=== PATIENT | female | born 1995 | race Caucasian/White ===

== ENCOUNTER 2023-09-20 00:56 | Emergency (ER) | payer OTHER, SELFPAY ==
[2023-09-20 01:04] VITALS: BP 128/79; PULSE 90; RESP 16; TEMP 37.1; O2SAT 100; BMI 24.0
[2023-09-20 01:19] LABS: MANUAL DIFF FLAG NO
[2023-09-20 01:21] LABS: Basophils Percent Auto 0.2 % (0-2); Hematocrit 38.3 % (37.0-47.0); Hemoglobin 13.4 g/dl (12.0-16.0); Imm Gran Abs Auto 0.01 X10*3/uL (0.00-0.03); Imm Gran Pct Auto 0.1 % (0.0-0.4); Lymphocytes Absolute Auto 1.5 X10*3/uL (1.2-4.9); Lymphocytes Percent Auto 18.3 % (20-40); Mean Corpuscular Hemoglobin 28.8 pg (27.0-33.0); Mean Corpuscular Volume 82.2 fL (80.0-98.0); Mean Platelet Volume 10.8 fL (9.4-12.3); Monocytes Absolute Auto 0.8 X10*3/uL (0.1-1.2); Monocytes Percent Auto 9.9 % (2-11); Neutrophils Absolute Auto 5.9 x10*3/uL (2.0-8.3); Neutrophils Percent Auto 71.5 % (45-73); Platelet Count 179 X10*3/uL (160-400); Red Blood Count 4.66 X10*6/uL (4.20-5.50); Red Cell Distribution Width 13.2 % (11.0-16.0); White Blood Count 8.3 X10*3/uL (4.8-10.8)
[2023-09-20 01:47] LABS: Alanine Aminotransferase 20 U/L (0-31); Albumin Level 4.5 g/dL (3.5-5.0); Alkaline Phosphatase 88 U/L (39-117); Anion Gap 23 (12-20); Aspartate Amino Transferase 30 U/L (5-31); Bilirubin Total 0.4 mg/dL (0.0-1.0); Blood Urea Nitrogen 7 mg/dL (9-16); Calcium 9.8 mg/dL (8.4-10.2); Carbon Dioxide 18 mmol/L (22-29); Chloride 99 mmol/L (96-108); Creatinine Clr Calc Pharmacy 90.3; Estimated Glomerular Filt Rate > 60; Glucose Random 102 mg/dL (60-115); HCG Quantitative < 2 mIU/mL; Potassium 4.8 mmol/L (3.3-5.1); Sodium 135 mmol/L (135-145); Total Protein 9.2 g/dL (6.5-8.0)
[2023-09-20 01:57] LABS: Influenza A PCR NEGATIVE (Negative); Influenza B PCR NEGATIVE (Negative); Resp Syncy Virus RNA Qual PCR NEGATIVE (Negative); SARS COV2 PCR INHOUSE NEGATIVE (Negative)
[2023-09-20 02:00] VITALS: BP 117/75; PULSE 74; RESP 20; TEMP 37; O2SAT 98
--- NOTE | 2023-09-20 02:16 | ED_ITS ---
HPI - Nausea/Vomiting/Diarrhea General Chief complaint: Nausea/Vomiting/Diarrhea Stated complaint: body aches , nausea Time Seen by Provider: 09/20/23 02:12 Source: patient Mode of arrival: ambulatory Limitations: no limitations History of Present Illness HPI Narrative: Comes to the emergency room complaining of nausea vomiting and diarrhea for 3 days. Diffuse body aches. No fever chills. Patient denies chest pain or shortness of breath, no significant abdominal pain, mild discomfort diffusely in the abdomen. Related Data Previous Rx's ?Medication ?Instructions ?Recorded ondansetron 4 mg disintegrating 4 mg PO Q6H PRN nausea and 09/20/23 tablet vomiting #14 tabs Allergies Allergy/AdvReac Type Severity Reaction Status Date / Time shellfish derived Allergy Anaphylaxis Verified 09/20/23 01:06 Review of Systems 2 Review of Systems: Constitutional : No Weight loss, No Fever, No Chills, No Night Sweats, No Fatigue, No Malaise ENT/Mouth : No Hearing loss, No Ear Pain, No Nasal Congestion, No Sinus Pain, No Hoarseness, No sore throat, No Rhinorrhea, No Swallowing Difficulty Eyes: No Eye Pain, No Swelling, No Redness, No Foreign Body, No Discharge, No Vision Changes Cardiovascular : No Chest Pain, No SOB, No Dyspnea on Exertion, No Orthopnea, No Edema, No Palpitations Respiratory : No Cough, No Sputum, No Wheezing, No Smoke Exposure, No Dyspnea Gastrointestinal : Complaining of nausea vomiting and diarrhea, complaining of abdominal discomfort, crampy sensation Genitourinary : no irregular bleeding, No Dysuria, No Urinary Frequency, No Hematuria, No Urinary Incontinence, No Urgency, No Flank Pain, No Urinary Flow Changes, No Hesitancy Musculoskeletal : No joint pain, No Myalgias, No Joint Swelling Skin : No Skin Lesions, No rash Neuro : No Weakness, No Numbness, No Paresthesias, No Loss of Consciousness, No Dizziness, No Headache Psych : No Anxiety/Panic, No Depression, No SI/HI/AH/VH, No Social Issues, Heme/Lymph: No Bruising, No Bleeding,No Lymphadenopathy Endocrine : No Polyuria, No Polydipsia, No Temperature Intolerance PMFSH Social History Social History Smoked in Last 30 Days: No Use of substances other than those prescribed or required for medical reasons: No Advance Directives: No Advance Directives Information Provided: No Do you have a plan to hurt others: No Plan Patient : No Physical Exam 2 Vital Signs: Vital Signs: Last Vital Signs Temp 98.4 F 09/20/23 04:00 Pulse 81 09/20/23 04:00 Resp 16 09/20/23 04:00 BP 127/77 09/20/23 04:00 Pulse Ox 98 09/20/23 04:00 O2 Del Method Room Air 09/20/23 04:00 BMI result Body Mass Index 24.0 Const: Other: Appearance: Alert. Oriented X3. No acute distress. Eyes: Pupils equal, round and reactive to light. ENT: Pharynx normal. Dry oral mucosa Neck: Normal inspection. Neck supple. No lymph nodes noted. No crepitus CVS: Normal heart rate and rhythm. Pulses normal. Normal S1 and S2 Respiratory: No respiratory distress. Breath sounds normal. No Wheezing. No rales Abdomen: Soft and nontender. No rigidity. No distention. Skin: Skin warm and dry. Normal skin color. Normal skin turgor. Extremities: No lower extremity edema. No Lacerations. No Rash Neuro: Oriented X 3. No motor deficit. No sensory deficit. Moving all extremities. No slurred speech. CN 2 through 12 grossly intact Psych: calm, cooperative, normal affect Medications Administered Discontinued Medications Generic Name Dose Route Start Last Admin Trade Name Freq PRN Reason Stop Dose Admin Sodium Chloride 2,000 mls @ 999 mls/hr 09/20/23 02:16 09/20/23 04:44 Ns IVCONT 09/20/23 04:16 Infused .Q2H1M ONE Infusion Ondansetron HCl 4 mg 09/20/23 02:16 09/20/23 02:31 Ondansetron Hcl 4 Mg/2 Ml Vial IVPUSH 09/20/23 02:17 4 mg ONCE ONE Administration Medical Decision Making Medical Decision Making MDM Narrative: -patient seems a bit dehydrated, being giving IV fluids and Zofran. -my interpretation of labs, normal hematology, chemistry shows the patient is a bit dehydrated, patient getting fluids. LFTs within normal limits -patient's abdominal exam seems benign, no indication for imaging. -after IV fluids, patient will be discharged home with some medications for nausea and vomiting. -after IV fluids, labs were rechecked, anion gap closed, overall patient feeling better Differential Diagnosis Differential Diagnoses: The differential diagnosis associated with the presentation includes (Viral gastroenteritis, viral syndrome, dehydration) Admission/Observation Consideration of admission/observation: Escalation of care including admission/observation considered (Patient was a bit dehydrated, open anion gap, admission/observation was considered.) Lab Data MDM Lab Attestation statement: I reviewed the patient's lab results. 09/20/23 01:15 09/20/23 04:14 Labs: Lab Results 09/20/23 09/20/23 09/20/23 Range/Units 01:15 02:36 04:14 WBC 8.3 (4.8-10.8) X10*3/uL RBC 4.66 (4.20-5.50) X10*6/uL Hgb 13.4 (12.0-16.0) g/dl Hct 38.3 (37.0-47.0) % MCV 82.2 (80.0-98.0) fL MCH 28.8 (27.0-33.0) pg MCHC 35.0 (31.0-35.0) g/dl RDW 13.2 (11.0-16.0) % Plt Count 179 (160-400) X10*3/uL MPV 10.8 (9.4-12.3) fL Immature Gran % (Auto) 0.1 (0.0-0.4) % Neut % (Auto) 71.5 (45-73) % Lymph % (Auto) 18.3 L (20-40) % [place] % (Auto) 9.9 (2-11) % Eos % (Auto) 0.0 (0-4) % Baso % (Auto) 0.2 (0-2) % Lymph # (Auto) 1.5 (1.2-4.9) X10*3/uL [place] # (Auto) 0.8 (0.1-1.2) X10*3/uL Eos # (Auto) 0.0 (0.0-0.4) X10*3/uL Baso # (Auto) 0.0 (0.0-0.2) X10*3/uL Abs Immat Gran (auto) 0.01 (0.00-0.03) X10*3/uL Absolute Neuts (auto) 5.9 (2.0-8.3) x10*3/uL Absolute Nucleated RBC 0.000 (0.0-0.012) X10*3/uL Nucleated RBC % (auto) 0.0 (0.0-0.2) /100WBC Sodium 135 138 (135-145) mmol/L Potassium 4.8 3.9 (3.3-5.1) mmol/L Chloride 99 108 (96-108) mmol/L Carbon Dioxide 18 L 18 L (22-29) mmol/L Anion Gap 23 H 16 (12-20) BUN 7 L 6 L (9-16) mg/dL Creatinine 0.76 0.64 (0.5-1.4) mg/dL Estim Creat Clear Calc 90.3 107.3 Estimated GFR > 60 > 60 Random Glucose 102 88 (60-115) mg/dL Calcium 9.8 8.2 L D (8.4-10.2) mg/dL Total Bilirubin 0.4 (0.0-1.0) mg/dL AST 30 (5-31) U/L ALT 20 (0-31) U/L Alkaline Phosphatase 88 (39-117) U/L Total Protein 9.2 H (6.5-8.0) g/dL Albumin 4.5 (3.5-5.0) g/dL Beta HCG, Quant < 2 mIU/mL Urine Color Yellow Urine Appearance Clear Urine pH 5.5 (5.0-9.0) Ur Specific [place] 1.015 (1.005-1.025) Urine Protein Negative (Neg-Trace) mg/dL Urine Glucose (UA) Negative (Negative) mg/dL Urine Ketones >=160 (Negative) mg/dL Urine Blood Negative (Negative) Urine Nitrite Negative (Negative) Ur Leukocyte Esterase Negative (Negative) Urine RBC 0-2 (0-2) /HPF Urine WBC 0-5 (0-5) /HPF Ur Squamous Epith Cells 0-2 (0-2) /HPF Urine Bacteria None Seen (None Seen) Hyaline Casts 0-2 (0-2) /LPF Influenza Type A (PCR) NEGATIVE (Negative) Influenza Type B (PCR) NEGATIVE (Negative) RSV RNA Qual (PCR) NEGATIVE (Negative) SARS-CoV-2 RNA (RT-PCR) NEGATIVE (Negative) Critical Care Time Critical Care Time Critical Care Time: Yes Total Critical Care Time: 60 Attestation: I have personally provided critical care time. Time includes review of lab data, radiology results, discussion with consultants, and monitoring for potential decompensation. Intervention performed as documented. Discharge Plan Discharge Clinical Impression: Nausea & vomiting, Acute dehydration Patient Disposition: Home, Self-Care Instructions: Acute Nausea and Vomiting (ED) Additional Instructions: Please follow-up with your primary care physician tomorrow. If you have any worsening or new symptoms, please return to the emergency room or call 911 Prescriptions: New ondansetron 4 mg tablet,disintegrating 4 mg PO Q6H PRN (Reason: nausea and vomiting) Qty: 14 0RF Stand Alone Forms: Work/School Release Print Language: Faroese
[2023-09-20] MEDS: ondansetron HCL 4 MG/2 ML VIAL IVPUSH (02:31)
[2023-09-20] MEDS: 0.9 % Sodium Chloride 2,000 ML 999 ML IVCONT (02:31)
--- NOTE | 2023-09-20 02:41 | PC.NURSE ---
pt from home, a&ox4, respirations even and unlabored, reporting nausea and vomiting with associated abdominal pain x 3 days. 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 pt denies blood in vomit, denies sob and chest pain. pt medicated per mar for nausea. urine sample obtained and sent to lab.
[2023-09-20 02:42] LABS: Appearance Urine Clear; Color Urine Yellow; Glucose Urine UA Negative (Negative); Leukocyte Esterase Urine Negative (Negative); Nitrite Urine Negative (Negative); PH 5.5 (5.0-9.0); Specific Gravity - Urine 1.015 (1.005-1.025); Urine Blood Negative (Negative); Urine Ketones >=160 mg/dL (Negative); Urine Protein Negative (Neg-Trace)
[2023-09-20 03:06] LABS: Bacteria Urine None Seen (None Seen); Hyaline Casts Urine 0-2 /LPF (0-2); RBC Urine 0-2 /HPF (0-2); Squamous Epithelial Cell Urine 0-2 /HPF (0-2); WBC Urine 0-5 /HPF (0-5)
[2023-09-20 04:00] VITALS: BP 127/77; PULSE 81; RESP 16; TEMP 36.9; O2SAT 98
[2023-09-20 04:32] LABS: Anion Gap 16 (12-20); Blood Urea Nitrogen 6 mg/dL (9-16); Calcium 8.2 mg/dL (8.4-10.2); Carbon Dioxide 18 mmol/L (22-29); Chloride 108 mmol/L (96-108); Creatinine Clr Calc Pharmacy 107.3; Estimated Glomerular Filt Rate > 60; Glucose Random 88 mg/dL (60-115); Potassium 3.9 mmol/L (3.3-5.1); Sodium 138 mmol/L (135-145)
[2023-09-20 05:30] VITALS: BP 124/74; PULSE 84; RESP 16; TEMP 37; O2SAT 98
== END 2023-09-20 05:33 | disposition home or self-care (01) ==
PROVIDERS: Emergency Provider Emergency Medicine
DX: E86.0 Dehydration (principal); R11.2 Nausea with vomiting, unspecified
CPT/HCPCS: 0241U; 36415; 80048; 80053; 81001; 84702; 85025; 96361; 96374; 99284; J2405